=== PATIENT | male | born 1980 | race Caucasian/White ===

== ENCOUNTER 2017-02-23 18:59 | Emergency (ER) | payer BC, OTHER ==
[~2017-02-23] VITALS: Ht 172.7 cm; Wt 68.0 kg
--- NOTE | 2017-02-23 18:59 | NUR ---
Patient was [facility].
[2017-02-23 19:01] VITALS: BP 137/79
[2017-02-23 20:04] VITALS: BP 122/74
--- NOTE | 2017-02-23 20:04 | NUR ---
Patient discharged with v/s stable. Written and verbal after care instructions given and explained. Patient verbalized understanding. Police with in custody. All questions addressed prior to discharge. Advised to follow up with [employer]D.
== END 2017-02-23 20:04 ==
LOC: MED 18:59
DX: Z02.89 Encounter for other administrative examinations (principal); M54.2 Cervicalgia